=== PATIENT | male | born 1990 | race Caucasian/White ===

== ENCOUNTER 2022-07-26 15:24 | Outpatient (REF) | payer MEDICAID, OTHER, SELFPAY ==
--- NOTE | ~2022-07-26 | XR_ITS ---
EXAMINATION: XR WRIST, RIGHT CLINICAL INFORMATION: Pain right wrist. COMPARISON: None TECHNIQUE: Right wrist is imaged in 4 views. FINDINGS: There is no acute or healing fracture, dislocation, destructive process. The ulnar variance is neutral. There is a ununited radial styloid ossification center and corticated ossicle at ulnar styloid. Lateral view shows subtle dorsal bowing distal radius and ulnar. The carpal bones appear intact. There is no focal joint narrowing or erosive changes. Small round mineralization is present in region of medial triangular fibrocartilage. XR/XR wrist RT w scaphoid IMPRESSION: -Mild dorsal bowing distal radius and ulnar. No acute or healing fracture or dislocation. 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
== END 2022-07-26 15:25 | disposition home or self-care (01) ==
LOC: HO.HOSX 15:24
PROVIDERS: Visit Provider Physician Assistant
DX: S52.501A Unspecified fracture of the lower end of right radius, initial encounter for closed fracture (principal); S52.611A Displaced fracture of right ulna styloid process, initial encounter for closed fracture
CPT/HCPCS: 29085; 73110; 99202

== ENCOUNTER 2022-08-23 10:16 | Outpatient (REF) | payer MEDICAID, OTHER, SELFPAY ==
--- NOTE | ~2022-08-23 | XR_ITS ---
EXAMINATION: XR WRIST, RIGHT CLINICAL INFORMATION: Pain right hand. COMPARISON: Right wrist 07/26/2022 TECHNIQUE: 4 views of the right wrist. FINDINGS: There is no acute or healing fracture, dislocation, destructive process. The ulnar variance is neutral. Again seen is an ununited radial styloid ossification center versus remote avulsion injury. Round mineralization in the region of the medial triangular fibrocartilage. No focal degenerative changes or joint space narrowing. XR/XR wrist RT w scaphoid IMPRESSION: Stable examination of the right wrist. No acute or healing fracture.
== END 2022-08-23 10:17 | disposition home or self-care (01) ==
LOC: HO.HOSX 10:16
PROVIDERS: Visit Provider Physician Assistant
DX: S52.501D Unspecified fracture of the lower end of right radius, subsequent encounter for closed fracture with routine healing (principal); S52.611D Displaced fracture of right ulna styloid process, subsequent encounter for closed fracture with routine healing; V89.2XXD Person injured in unspecified motor-vehicle accident, traffic, subsequent encounter
CPT/HCPCS: 73110; 99212

== ENCOUNTER 2022-09-27 08:32 | Outpatient (REF) | payer MEDICAID, OTHER, SELFPAY ==
--- NOTE | ~2022-09-27 | XR_ITS ---
EXAMINATION: XR WRIST, RIGHT CLINICAL INFORMATION: Pain. COMPARISON: Radiographs dated 08/23/2022 and 07/26/2022. TECHNIQUE: PA, lateral, and oblique views of the right wrist. FINDINGS: Bony mineralization is normal. There is a neutral ulnar variance. There is interim healing of a previously noted radial styloid fracture. Again, there is a chronic-appearing ulnar styloid avulsion fragment and/or accessory ossification center. No focal soft tissue swelling, gas or foreign body is seen. XR/XR wrist RT min 3V IMPRESSION: A healed radial styloid fracture is noted. 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
== END 2022-09-27 08:33 | disposition home or self-care (01) ==
LOC: HO.HOSX 08:32
PROVIDERS: Visit Provider Physician Assistant
DX: S52.501D Unspecified fracture of the lower end of right radius, subsequent encounter for closed fracture with routine healing (principal); S52.611D Displaced fracture of right ulna styloid process, subsequent encounter for closed fracture with routine healing; V89.2XXD Person injured in unspecified motor-vehicle accident, traffic, subsequent encounter
CPT/HCPCS: 73110; 99212